=== PATIENT | male | born 1970 | race Caucasian/White ===

== ENCOUNTER → 2017-03-25 | Outpatient (CLI) | payer BC ==
--- NOTE | 2017-03-25 09:02 | CT ---
EXAMINATION TYPE: CT chest w con DATE OF EXAM: 03/25/2017 COMPARISON: Radiograph 03/15/2017 HISTORY: 46-year-old male Solitary lung nodule TECHNIQUE: Contiguous axial scanning of the chest after the administration of 100 mL of Omnipaque 300 . Coronal/sagittal reconstructions performed. CT DLP: 674mGycm. Automatic exposure control utilized for a dose reduction. FINDINGS: The heart is normal size without pericardial effusion. Aorta normal caliber with conventional arch vessel branching anatomy. No thoracic lymphadenopathy. Trace bilateral gynecomastia. Lungs show no evidence for consolidation or pleural effusion. No cavitary changes or suspicious pulmo nary nodule or mass. Visualized upper abdomen shows a hilar splenule. Bones: No osseous destructive process. IMPRESSION: The questioned pulmonary nodule on radiographs seems to have represented summation artifact. No suspi cious pulmonary nodule or mass. No acute pulmonary process.
== END | disposition home or self-care (01) ==
LOC: RADCTMAIN 07:57
PROVIDERS: ATTEND Family Medicine
DX: R91.1 Solitary pulmonary nodule (principal)
CPT/HCPCS: 71260; Q9967

== ENCOUNTER 2020-09-24 07:41 | Day surgery (SDC) | payer BC ==
[2020-09-18 10:28] VITALS: BMI 28.7
[2020-09-24] MEDS ORDERED: LIDOCAINE 1% (10MG/ML) FOR IV START INTRADERMA PRN (07:43)
[2020-09-24] MEDS ORDERED: LACTATED RINGERS 1,000 ML IV SCH (07:43)
[2020-09-24 08:06] VITALS: TEMP 97.7
[2020-09-24] MEDS ORDERED: PROPOFOL 10 MG/ML 20 ML VIAL IV ONE (08:20)
--- NOTE | 2020-09-24 08:26 | P.GSHP ---
History of Present Illness H&P Date: 09/24/20 Chief Complaint: Colon cancer screening Patient today for colonoscopy. He has not had 1 previously. No bowel complaints. No family history of colon cancer. Past Medical History Past Medical History: Cancer, Hyperlipidemia Additional Past Medical History / Comment(s): depression. SKIN CANCER. POSITIVE FOR BRCA 1 GENE MUTATION History of Any Multi-Drug Resistant Organisms: None Reported Past Surgical History: Back Surgery Additional Past Surgical History / Comment(s): sinus/ vasectomy. PARTIAL DISCECTOMY. MALIGNANT MELANOMA REMOVED FROM SHOULDER Past Anesthesia/Blood Transfusion Reactions: No Reported Reaction Smoking Status: Never smoker - Past Family History Father Family Medical History: Cancer Sister(s) Family Medical History: Cancer Medications and Allergies Home Medications Medication Instructions Recorded Confirmed Type Sertraline HCl 100 mg PO HS 08/18/14 09/24/20 History Atorvastatin Calcium [Lipitor] 20 mg PO HS 02/15/15 09/24/20 History Allergies Allergy/AdvReac Type Severity Reaction Status Date / Time No Known Allergies Allergy Verified 09/24/20 08:02 Surgical - Exam Vital Signs Temp Pulse Resp BP Pulse Ox 97.7 F 68 18 147/83 96 09/24/20 08:04 09/24/20 08:04 09/24/20 08:04 09/24/20 08:04 09/24/20 08:04 Physical exam: General: Well-developed, well-nourished HEENT: Normocephalic, sclerae nonicteric Abdomen: Nontender, nondistended Extremities: No edema Neuro: Alert and oriented Assessment and Plan (1) Colon cancer screening Narrative/Plan: Will proceed with colonoscopy Current Visit: Yes Status: Acute Code(s): Z12.11 - ENCOUNTER FOR SCREENING FOR MALIGNANT NEOPLASM OF COLON SNOMED Code(s): 648851365
--- NOTE | 2020-09-24 08:42 | P.PCN ---
Date of Procedure: 09/24/20 Procedure(s) Performed: PREOPERATIVE DIAGNOSIS: Colon cancer screening POSTOPERATIVE DIAGNOSIS: Small transverse colon polyp PROCEDURE: Colonoscopy with snare polypectomy ANESTHESIA: MAC SURGEON: Daniel Spicer M.D. SPECIMENS: Transverse colon polyp ENDOSCOPIC PROCEDURE: The patient was placed on the endoscopy table in the left decubitus position. The Olympus colonoscope was inserted into the anus and passed under direct visualization to the base of the cecum. The appendiceal orifice was visualized. From that point the scope was slowly withdrawn inspecting all surfaces carefully. There were no neoplastic inflammatory or polypoid lesions throughout the cecum and ascending colon. In the transverse colon there was noted to be a small polyp that was removed using the snare with cautery technique. The remainder of the transverse descending sigmoid and rectum appeared normal. There was no visible diverticulosis. Digital rectal examination was normal. The patient was taken to the recovery room in stable condition per anesthesia guidelines. RECOMMENDATIONS: Await biopsy results. Probable follow-up colonoscopy 5 years.
[2020-09-24 09:17] VITALS: BP 132/74; PULSE 67; RESP 18
== END 2020-09-24 09:24 | disposition home or self-care (01) ==
LOC: ORWHC2ENDO 07:41
PROVIDERS: ATTEND Surgery
DX: Z12.11 Encounter for screening for malignant neoplasm of colon (principal); D12.3 Benign neoplasm of transverse colon; E78.5 Hyperlipidemia, unspecified; Z85.828 Personal history of other malignant neoplasm of skin; F32.9 Major depressive disorder, single episode, unspecified; Z15.01 Genetic susceptibility to malignant neoplasm of breast; Z98.52 Vasectomy status; Z98.890 Other specified postprocedural states; Z80.9 Family history of malignant neoplasm, unspecified; Z79.899 Other long term (current) drug therapy
CPT/HCPCS: 88305; 45385; J2704

== ENCOUNTER → 2021-06-25 | Outpatient (CLI) | payer BC, OTHER | END | disposition home or self-care (01) | LOC: LABWHC1 14:47 | PROVIDERS: ATTEND Emergency Medicine | DX: Z03.818 Encounter for observation for suspected exposure to other biological agents ruled out (principal); Z20.828 Contact with and (suspected) exposure to other viral communicable diseases | CPT/HCPCS: 87635 ==